=== PATIENT | female | born 1995 | race Caucasian/White ===

== ENCOUNTER 2016-12-30 08:41 | Emergency (ER) | payer OTHER ==
[~2016-12-30 08:41] MED LIST: ALBU8.5H6
[2016-12-30 09:17] VITALS: BP 134/72
[2016-12-30] MEDS ORDERED: IPRATRPIUM/ALBUTEROL 0.5/2.5MG 3 ML NEBU. NEB ONE (09:30)
[2016-12-30] MEDS ORDERED: predniSONE 20 MG TABLET PO ONE (09:30)
--- NOTE | 2016-12-30 09:30 | PHYS DOC ---
Past Medical History Past Medical History: No Pertinent History, Asthma Past Surgical History: No Surgical History Alcohol Use: None Drug Use: None Adult General Chief Complaint Chief Complaint: ASTHMA HPI HPI Patient is a 21 year old female with history of asthma who presents today with cough and shortness of breath due to her asthma that began 2 days ago. Patient states she does not have an inhaler. Review of Systems Review of Systems Constitutional: Denies fever or chills [] Eyes: Denies change in visual acuity, redness, or eye pain [] HENT: Denies nasal congestion or sore throat [] Respiratory: Cough or shortness of breath Cardiovascular: No additional information not addressed in HPI [] GI: Denies abdominal pain, nausea, vomiting, bloody stools or diarrhea [] : Denies dysuria or hematuria [] Musculoskeletal: Denies back pain or joint pain [] Integument: Denies rash or skin lesions [] Neurologic: Denies headache, focal weakness or sensory changes [] Endocrine: Denies polyuria or polydipsia [] Current Medications Current Medications Current Medications Medications (Trade) Dose Ordered Sig/Gio Start Time Stop Time Status Last Admin Dose Admin Albuterol/ Ipratropium (Duoneb) 3 ml 1X ONCE 12/30/16 09:30 12/30/16 09:31 DC 12/30/16 09:54 3 ML Prednisone (Prednisone) 60 mg 1X ONCE 12/30/16 09:30 12/30/16 09:31 DC 12/30/16 09:47 60 MG Allergies Allergies Allergies Coded Allergies Type Severity Reaction Last Updated Verified No Known Drug Allergies 12/04/13 No Physical Exam Physical Exam Constitutional: Well developed, well nourished, no acute distress, non-toxic appearance. [] HENT: Normocephalic, atraumatic, bilateral external ears normal, oropharynx moist, no oral exudates, nose normal. [] Eyes: PERRLA, EOMI, conjunctiva normal, no discharge. [] Neck: Normal range of motion, no tenderness, supple, no stridor. [] Cardiovascular:Heart rate regular rhythm, no murmur [] Lungs & Thorax: Slight wheezing to the left lower lobe Abdomen: Bowel sounds normal, soft, no tenderness, no masses, no pulsatile masses. [] Skin: Warm, dry, no erythema, no rash. [] Back: No tenderness, no CVA tenderness. [] Extremities: No tenderness, no cyanosis, no clubbing, ROM intact, no edema. [] Neurologic: Alert and oriented X 3, normal motor function, normal sensory function, no focal deficits noted. [] Psychologic: Affect normal, judgement normal, mood normal. [] Current Patient Data Vital Signs Vital Signs Date Time Temp Pulse Resp B/P Pulse Ox O2 Delivery O2 Flow Rate FiO2 12/30/16 09:54 100 Room Air 12/30/16 09:17 97.6 104 16 97.6 EKG EKG [] Radiology/Procedures Radiology/Procedures [] Course & Med Decision Making Course & Med Decision Making Pertinent Labs and Imaging studies reviewed. (See chart for details) Patient with history of asthma presents today with a slight asthma exacerbation. She was wheezing on arrival to the ED. She was given a DuoNeb treatment and prednisone. Patient was given a DuoNeb treatment. Lungs have cleared up. Discharged with albuterol inhaler, prednisone and Tessalon Perles. Discharged with Zyrtec. Encouraged to follow up with the PCP in the next 7 days. Dragon Disclaimer Dragon Disclaimer This electronic medical record was generated, in whole or in part, using a voice recognition dictation system. Departure Departure Impression: Primary Impression: Asthma exacerbation Disposition: 01 HOME, SELF-CARE Condition: STABLE Referrals: NO PCP (PCP) Follow-up with the primary care doctor in the next 7 days Patient Instructions: Asthma, Adult Additional Instructions: You were seen with asthma exacerbation. Take the prescribed medicines as ordered. Come back to the ED at any point symptoms worsen or you have concerning symptoms. Scripts Albuterol Sulfate (Proair Respiclick)90 Mcg Aer.pow.ba1 Puff IH PRN Q6HRS PRN SHORTNESS OF BREATH #1 INHALER Prov:SCOTTY DURAN APRN 12/30/16 Benzonatate (Tessalon Perle)100 Mg Capsule1 Cap PO TID #30 CAP Prov:SCOTTY DURAN APRN 12/30/16 Prednisone 50 Mg Tablet1 Tab PO DAILY #4 TAB Prov:SCOTTY DURAN APRN 12/30/16 SCOTTY DURAN RADIATOR [employer] Dec 30, 2016 09:30
[2016-12-30] MEDS ORDERED: BENZ100C PO (10:05)
[2016-12-30] MEDS ORDERED: PROAIR RESPICL90 MCG IH (10:05)
[2016-12-30] MEDS ORDERED: PRED50TA PO (10:05)
== END 2016-12-30 10:50 | disposition home or self-care (01) ==
LOC: ER 08:41
DX: J45.901 Unspecified asthma with (acute) exacerbation (principal)
CPT/HCPCS: 94640; 99283; J7512; J7620

== ENCOUNTER 2017-05-23 17:28 | Emergency (ER) | payer OTHER ==
[~2017-05-23 17:28] MED LIST changes: +BENZ100C PO; +PRED50TA PO; +PROAIR RESPICL90 MCG IH
[2017-05-23] MEDS ORDERED: IPRATRPIUM/ALBUTEROL 0.5/2.5MG 3 ML NEBU. NEB ONE (17:45)
[2017-05-23 17:57] VITALS: BP 129/83
[2017-05-23] MEDS ORDERED: PRED20TA PO (18:31)
[2017-05-23] MEDS ORDERED: INHA1SPA94 MC (18:31)
[2017-05-23] MEDS ORDERED: PROAIR HFA8.5 GM INH (18:31)
--- NOTE | 2017-05-23 18:32 | PHYS DOC ---
Past Medical History Past Medical History: Asthma Past Surgical History: Other Additional Past Surgical Histo: wisdom teeth Alcohol Use: None Drug Use: None Adult General Chief Complaint Chief Complaint: ASTHMA HPI HPI Patient is a 22 year old female presents to the emergency department stating that she's been having shortness of air and wheezing for the last 2 days. She states that she does not have a respiratory inhaler at home. She is unsure when she was on steroids for the last. She denies any fever, chills or any nausea vomiting. She denies any history of smoking. Patient continues to have slight wheezing noted upon audible notation. Patient was also noted to forcefully exhale and have increased wheezing noted. Review of Systems Review of Systems Constitutional: Denies fever or chills [] Eyes: Denies change in visual acuity, redness, or eye pain [] HENT: Denies nasal congestion or sore throat [] Respiratory: Denies cough complaint of shortness of breath and wheezing. Cardiovascular: No additional information not addressed in HPI [] GI: Denies abdominal pain, nausea, vomiting, bloody stools or diarrhea [] : Denies dysuria or hematuria [] Musculoskeletal: Denies back pain or joint pain [] Integument: Denies rash or skin lesions [] Neurologic: Denies headache, focal weakness or sensory changes [] Endocrine: Denies polyuria or polydipsia [] Current Medications Current Medications Current Medications Medications (Trade) Dose Ordered Sig/[facility] Start Time Stop Time Status Last Admin Dose Admin Albuterol/ Ipratropium (Duoneb) 3 ml 1X ONCE 05/23/17 17:45 05/23/17 17:46 DC Allergies Allergies Allergies Coded Allergies Type Severity Reaction Last Updated Verified No Known Drug Allergies 12/04/13 No Physical Exam Physical Exam Constitutional: Well developed, well nourished, no acute distress, non-toxic appearance. [] HENT: Normocephalic, atraumatic, bilateral external ears normal, oropharynx moist, no oral exudates, nose normal. [] Eyes: PERRLA, EOMI, conjunctiva normal, no discharge. [] Neck: Normal range of motion, no tenderness, supple, no stridor. [] Cardiovascular:Heart rate regular rhythm, no murmur [] Lungs & Thorax: Bilateral breath sounds wheezes noted throughout.] Skin: Warm, dry, no erythema, no rash. [] Extremities: No tenderness, no cyanosis, no clubbing, ROM intact, no edema. [] Neurologic: Alert and oriented X 3, normal motor function, normal sensory function, no focal deficits noted. [] Psychologic: Affect normal, judgement normal, mood normal. [] Current Patient Data Vital Signs Vital Signs Date Time Temp Pulse Resp B/P (MAP) Pulse Ox O2 Delivery O2 Flow Rate FiO2 05/23/17 18:09 Room Air 05/23/17 17:57 98.3 95 18 98 98.3 EKG EKG [] Radiology/Procedures Radiology/Procedures [] Course & Med Decision Making Course & Med Decision Making Pertinent Labs and Imaging studies reviewed. (See chart for details) Patient was provided with respiratory treatment here in the emergency department. She still continues to have wheezes however patient states that she is able to breathe much better and does not feel short of breath. Patient states that she did have a nebulizer machine at home however has not been able to find a for the last 1-2 years. She states her primary care physician does not feel that she needs to have the inhaler nebulizer machine. Has not written for 1. Therefore she states she does not have a primary care physician. Patient will be placed on steroids 40 mg of prednisone daily for the next 7 days. She' ll be provided with a pro-air inhaler with recommendations to follow-up the primary care physician for further evaluation. Patient agrees with discharge instructions treatment regimens and signs and symptoms to return back to emergency department. Patient concerns been answered at patient's bedside. [] Dragon Disclaimer Dragon Disclaimer This electronic medical record was generated, in whole or in part, using a voice recognition dictation system. Departure Departure Impression: Primary Impression: Asthma exacerbation Disposition: HOME, SELF-CARE Condition: STABLE Referrals: NO PCP (PCP) Patient Instructions: Asthma, Adult, [id number] Additional Instructions: Activity as tolerated. Medications as prescribed. Use the albuterol inhaler every 4-6 hours as needed for shortness of air or wheezing. Follow-up with the primary care physician in the next 5-7 days. Return back to emergency prior signs symptoms of become worse. Scripts Inhaler, Assist Devices (Compact Space Chamber) 1 Each Spacer EACH , #1 Prov: CAN TAVAREZ APRN 05/23/17 Albuterol Sulfate (PROAIR HFA INHALER) 8.5 Gm Hfa.aer.ad 1 PUFF INH PRN Q6HRS Y for SHORTNESS OF BREATH, #1 INHALER 0 Refills Prov: CAN TAVAREZ APRN 05/23/17 Prednisone (PREDNISONE) 20 Mg Tablet 40 MG PO DAILY for 7 Days, #14 TAB Prov: CAN TAVAREZ APRN 05/23/17 CAN TAVAREZ APRN May 23, 2017 18:32
== END 2017-05-23 18:55 | disposition home or self-care (01) ==
LOC: ER 17:28
DX: J45.901 Unspecified asthma with (acute) exacerbation (principal)
CPT/HCPCS: 94640; 99283-25

== ENCOUNTER 2018-01-05 08:17 | Emergency (ER) | payer OTHER ==
[2018-01-05] MEDS: IPRATRPIUM/ALBUTEROL 0.5/2.5MG 3 ML NEBU. NEB (09:03)
[2018-01-05] MEDS: predniSONE 20 MG TABLET PO (09:23)
[2018-01-05 09:27] LABS: ADD MAN DIFF? NO
[2018-01-05 09:36] LABS: URINE HCG POC HCG NEGATIVE (Negative)
[2018-01-05 09:40] LABS: BILIRUBIN,URINE NEGATIVE (NEG); CLARITY,URINE CLEAR; COLOR,URINE YELLOW; GLUCOSE,URINE NEGATIVE (NEG); NITRITE,URINE NEGATIVE (NEG); PROTEIN,URINE NEGATIVE (NEG-TRACE)
[2018-01-05 09:42] LABS: ANION GAP 10 (6-14); BLOOD UREA NITROGEN 9 mg/dL (7-20); CALCIUM 9.2 mg/dL (8.5-10.1); CARBON DIOXIDE 28 mmol/L (21-32); CHLORIDE 105 mmol/L (98-107); CREATININE 0.8 mg/dL (0.6-1.0); GFR 88.9; GLUCOSE 95 mg/dL (70-99); POTASSIUM 4.2 mmol/L (3.5-5.1); SODIUM 143 mmol/L (136-145)
[2018-01-05 09:44] LABS: BASO # 0.1 x10^3/uL (0.0-0.2); BASO % 1 % (0-3); EOS # 0.3 x10^3/uL (0.0-0.7); EOS % 5 % (0-3); HEMATOCRIT 40.2 % (36.0-47.0); HEMOGLOBIN 13.6 g/dL (12.0-15.5); LYMPH % 34 % (24-48); MEAN CORPUSCULAR HEMOGLOBIN 32 pg (25-35); MEAN CORPUSCULAR HGB CONC 34 g/dL (31-37); MEAN CORPUSCULAR VOLUME 94 fL (79-100); MONO # 0.4 x10^3/uL (0.0-1.1); MONO % 7 % (0-9); NEUT # 3.2 x10^3uL (1.8-7.7); NEUT % 53 % (31-73); PLATELET COUNT 246 x10^3/uL (140-400); RED BLOOD COUNT 4.26 x10^6/uL (3.50-5.40); RED CELL DISTRIBUTION WIDTH 13.6 % (11.5-14.5)
[2018-01-05 09:45] LABS: BARBITURATES NEG (NEG); BENZODIAZEPINES NEG (NEG); CANNABINOIDS POS (NEG); COCAINE NEG (NEG); METHADONE NEG (NEG); OPIATES NEG (NEG); PHENCYCLIDINE NEG (NEG)
[2018-01-05 09:46] LABS: AMPHETAMINE/METHAMPHETAMINE NEG (NEG); ETHANOL, URINE NEG (NEG)
[2018-01-05 10:00] LABS: TROPONINI < 0.017 ng/mL (0.000-0.055)
[2018-01-05 10:01] LABS: CKMB INDEX 0.4 % (0-4); CKMB MASS 0.6 ng/mL (0.0-3.6); CREATINE KINASE 153 U/L (26-192)
[2018-01-05 10:02] LABS: BACTERIA,URINE FEW /HPF (0-FEW); RBC,URINE 0 /HPF (0-2); SQUAMOUS EPITHELIAL CELL,UR MOD /LPF
== END 2018-01-05 11:00 | disposition home or self-care (01) ==
LOC: ER 08:17
DX: J45.21 Mild intermittent asthma with (acute) exacerbation (principal)
CPT/HCPCS: 36415; 71045; 80048; 80307; 81001; 81025; 82553; 84484; 85025; 93005; 94640; 99285-25; J7512; J7620

== ENCOUNTER 2019-02-20 08:07 | Emergency (ER) | payer OTHER ==
[~2019-02-20] VITALS: Ht 175.3 cm; Wt 99.8 kg
[~2019-02-20 08:07] MED LIST changes: +ALBU2.5V8 INH; +INHA1SPA94 MC; +PRED20TA PO
[2019-02-20 08:24] VITALS: BP 115/86
[2019-02-20] MEDS ORDERED: predniSONE 10 MG TABLET PO ONE (09:00)
[2019-02-20] MEDS ORDERED: IPRATRPIUM/ALBUTEROL 0.5/2.5MG 3 ML NEBU. NEB ONE (09:00)
--- NOTE | 2019-02-20 09:02 | PHYS DOC ---
Past Medical History Past Medical History: Asthma Past Surgical History: Other Additional Past Surgical Histo: wisdom teeth Additional Information: smokes marijuana daily, denies cigarette use Alcohol Use: None Drug Use: Marijuana Social History Narrative: daily use Adult General Chief Complaint Chief Complaint: ASTHMA HPI HPI 23-year-old female presents to ER via POV for complaints of asthma exacerbation. Patient reports history of asthma states for the past 2 weeks she has been using her nebulizer inhaler more frequently. Patient states she ran out of her nebulizer and inhaler medications and so symptoms increase. Patient states she feels she is not moving much air and feels slightly short of air with exertion. Patient states this is similar to prior asthma exacerbations. Patient denies recent travel, fever, productive cough. Pt denies chest pain or palpitations. LMP 01/25/19. Patient reports she smokes marijuana occasionally denies cigarette smoking. Review of Systems Review of Systems Constitutional: Denies fever or chills [] Eyes: Denies change in visual acuity, redness, or eye pain [] HENT: Denies nasal congestion or sore throat [] Respiratory: Denies cough. Reports intermittent shortness of air increasing with exertion. Cardiovascular: No additional information not addressed in HPI [] GI: Denies abdominal pain, nausea, vomiting, bloody stools or diarrhea [] : Denies urinary sxs Musculoskeletal: Denies back/neck pain or joint pain [] Integument: Denies rash or skin lesions [] Neurologic: Denies headache, focal weakness or sensory changes. Denies dizziness All other systems were reviewed and found to be within normal limits, except as documented in this note. Current Medications Current Medications Current Medications Medications (Trade) Dose Ordered Sig/Gio Start Time Stop Time Status Last Admin Dose Admin Albuterol/ Ipratropium (Duoneb) 3 ml 1X ONCE 02/20/19 09:00 02/20/19 09:01 DC 02/20/19 09:08 3 ML Prednisone (Prednisone) 50 mg 1X ONCE 02/20/19 09:00 02/20/19 09:01 DC 02/20/19 09:05 50 MG Allergies Allergies Allergies Coded Allergies Type Severity Reaction Last Updated Verified No Known Drug Allergies 12/04/13 No Physical Exam Physical Exam Constitutional: Well developed, well nourished, no acute distress, non-toxic appearance. Speaking in fragmented sentences HENT: Normocephalic, atraumatic, oropharynx moist, no oral exudates, nose normal. [] Eyes: Pupils equal, conjunctiva normal, no discharge. [] Neck: Normal range of motion, no tenderness, supple, no stridor/gross adenopathy Cardiovascular: Heart rate regular rhythm, no murmur [] Lungs & Thorax: Diminished air movement throughout all lung francois. No wheezing or rhonchi. Respirations equal and slightly labored Skin: Warm, dry, no erythema, no rash. [] Back: No tenderness, full ROM Extremities: No tenderness, no cyanosis, no clubbing, ROM intact, no edema. [] Neurologic: Alert and oriented X 3, normal motor function, normal sensory f unction, no focal deficits noted. [] Psychologic: Affect normal, judgement normal, mood normal. [] Current Patient Data Vital Signs Vital Signs Date Time Temp Pulse Resp B/P (MAP) Pulse Ox O2 Delivery O2 Flow Rate FiO2 02/20/19 09:08 95 Room Air 02/20/19 08:24 97.9 75 20 115/86 (96) 97.9 EKG EKG [] Radiology/Procedures Radiology/Procedures [] Course & Med Decision Making Course & Med Decision Making 0935: She was evaluated for complaints of asthma exacerbation. She received a DuoNeb treatment and dose of prednisone. On reexamination patient has increased air movement throughout all lung francois and reports she is feeling much better and requesting to be discharged home. Patient has request for prescriptions for her nebulizer albuterol as well as an albuterol inhaler as she has ran out. Provide dose with her discharge paperwork. Education provided on signs and symptoms to return to ER. Discharge instructions were discussed. Patient to follow-up with primary care physician if symptoms persist or with any concerns. Dragon Disclaimer Dragon Disclaimer This electronic medical record was generated, in whole or in part, using a voice recognition dictation system. Departure Departure Impression: Primary Impression: Asthma exacerbation Disposition: HOME, SELF-CARE Condition: STABLE Referrals: UNKNOWN PCP NAME (PCP) Patient Instructions: Asthma, Adult Additional Instructions: Drink plenty of fluids. Avoid smoking. Follow-up with your primary care physician for reevaluation and further care. Scripts Albuterol Sulfate (ALBUTEROL SULFATE NEB SOLN) 1.25 Mg/3 Ml Vial.neb 1 VIAL NEB Q6HRS, #60 ML 0 Refills Prov: CHICA RAMIREZ APRN 02/20/19 Prednisone (PREDNISONE) 50 Mg Tablet 1 TAB PO DAILY, #4 TAB 0 Refills Start 02/21/19 Prov: CHICA RAMIREZ APRN 02/20/19 Albuterol Sulfate (Proair Hfa) 8.5 Gm Hfa.aer.ad 1 PUFF INH PRN Q6HRS PRN for SHORTNESS OF BREATH, #1 INHALER 0 Refills Prov: CHICA RAMIREZ APRN 02/20/19 CHICA RAMIREZ APRN Feb 20, 2019 09:02
[2019-02-20] MEDS ORDERED: ALBU1.25 NEB (09:46)
[2019-02-20] MEDS ORDERED: PRED50TA PO (09:46)
[2019-02-20] MEDS ORDERED: ALBU2.5V8 INH (09:46)
== END 2019-02-20 09:57 | disposition home or self-care (01) ==
LOC: ER 08:07
DX: J45.901 Unspecified asthma with (acute) exacerbation (principal); F12.20 Cannabis dependence, uncomplicated
CPT/HCPCS: 94640; 99283; J7512; J7620